=== PATIENT | male | born 1980 ===

== ENCOUNTER → 2019-08-17 | Outpatient (CLI) | payer BC | LOC: LAB EV 15:09 → LAB SHORT 15:09 | DX: J32.9 Chronic sinusitis, unspecified (principal) | CPT/HCPCS: 87070; 87075; 87077; 87147; 87186; 87205 ==

== ENCOUNTER → 2023-01-09 | Outpatient (CLI) | payer BC ==
[2023-01-09 14:02] LABS: BASOPHILS ABSOLUTE AUTO 0.06 K/mm3 (0.00-0.23); BASOPHILS PERCENT AUTO 1 % (0-2); EOSINOPHILS ABSOLUTE AUTO 0.08 K/mm3 (0.00-0.68); EOSINOPHILS PERCENT AUTO 1 % (0-6); Hematocrit 44.8 % (37.0-53.0); Hemoglobin 15.4 g/dL (13.5-17.5); IMMATURE GRAN ABSOLUTE AUTO 0.03 K/mm3 (0.00-0.10); IMMATURE GRAN PERCENT AUTO 0 % (0-1); LYMPHOCYTES ABSOLUTE AUTO 2.12 K/mm3 (0.84-5.20); LYMPHOCYTES PERCENT AUTO 26 % (21-46); MONOCYTES ABSOLUTE AUTO 0.56 K/mm3 (0.16-1.47); MONOCYTES PERCENT AUTO 7 % (4-13); Mean Corpuscular HGB Conc 34.4 g/dL (31.5-36.5); Mean Corpuscular Volume 90 fL (80-100); NEUTROPHILS ABSOLUTE AUTO 5.35 K/mm3 (1.96-9.15); NEUTROPHILS PERCENT AUTO 65 % (41-73); Platelet Count 399 K/mm3 (150-400); RDW Coefficient Variation 12.4 % (11.7-14.2); RDW Standard Deviation 40.7 fL (35.1-46.3); Red Blood Cell Count 4.96 M/mm3 (4.30-5.90)
[2023-01-10 08:13] LABS: HIV AB/P24 AG SCREEN Non Reactive (Non Reactive)
[2023-01-10 10:08] LABS: HCV ANTIBODY Non Reactive (Non Reactive)
== END | disposition home or self-care (01) ==
LOC: LAB SHORT 09:10 → LAB 09:10
PROVIDERS: Family Medicine
DX: Z20.2 Contact with and (suspected) exposure to infections with a predominantly sexual mode of transmission (principal)
CPT/HCPCS: 85025; 86317; 86592; 86803; 87389

== ENCOUNTER 2024-11-01 17:52 | Emergency (ER) | payer BC ==
[~2024-11-01] VITALS: Ht 177.8 cm; Wt 97.1 kg
[2024-11-01 18:37] VITALS: BP 149/104
== END 2024-11-01 18:41 ==
LOC: ER 17:52
DX: Z02.89 Encounter for other administrative examinations (principal); S00.11XA Contusion of right eyelid and periocular area, initial encounter; Y04.0XXA Assault by unarmed brawl or fight, initial encounter
CPT/HCPCS: 99284